=== PATIENT | female | born 2000 | race African-American/Black ===

== ENCOUNTER 2020-09-18 12:44 | Emergency (ER) | payer MEDICAID, SELFPAY ==
[2020-09-18 12:59] VITALS: BP 136/88; PULSE 91; RESP 22; TEMP 36.4; O2SAT 100; BMI 22.1
--- NOTE | 2020-09-18 13:49 | ED.PSYCH ---
HPI - Psych General Chief Complaint: Psychiatric Symptoms Stated Complaint: CRISIS Source: patient Mode of arrival: ambulatory Limitations: no limitations History of Present Illness HPI Narrative: Patient presents to the ED for crisis evaluation. Patient states she was having argument with her mother in in her anger and slammed the mirror upon her head. Patient states she did it out of anger. But patient denies trying to kill or hurt herself. Patient la any homicidal/suicidal thoughts. Patient denies any having any auditory/visual hallucinations. Patient states history of depression but has not been on medications since being a teenager. . Related Data Allergies Allergy/AdvReac Type Severity Reaction Status Date / Time shrimp [SHRIMP] Allergy Unknown HIVES Unverified 01/13/20 16:51 Review of Systems Review of Systems: Yes all other systems are reviewed and are negative Constitutional: Constitutional: Reports as per HPI and Reports no additional constitutional complaints Eyes: Eyes: Reports as per HPI and Reports no additional eye complaints ENT: Reports system reviewed and no additional complaints, except as documented and Reports as per HPI Cardiovascular: Cardiovascular: Reports as per HPI and Reports no additional cardiovascular complaints Respiratory: Respiratory: Reports as per HPI and Reports no additional respiratory complaints Gastrointestinal: Gastrointestinal: Reports as per HPI and Reports no additional gastrointestinal complaints Musculoskeletal: Musculoskeletal: Reports no additional musculoskeletal complaints and Reports as per HPI Neurologic: Reports system reviewed and no additional complaints, except as documented and Reports as per HPI Psychiatric: Psychiatric: Reports no additional psychiatric complaints and Reports as per HPI Comments: anger [facility] Past Medical History Medical History (Updated 09/18/20 @ 17:04 by KENDAL Andrews) No known health problems Social History Social History Advance Directives: No Advance Directives Information Provided: No Physical Exam Vital Signs: Vital Signs: Last Vital Signs Temp 97.5 F 09/18/20 12:59 Pulse 91 09/18/20 12:59 Resp 22 H 09/18/20 12:59 BP 136/88 09/18/20 12:59 Pulse Ox 100 09/18/20 12:59 Body Mass Index 22.1 Const: General: cooperative, healthy appearing, comfortable, no acute distress, well developed, alert, awake and Physically active Orientation/consciousness: patient oriented x3 HENMT: Other: Positive for abrasion own left temporal. Positive for suicide more frontal abrasions. Positive for small nare laceration. Head: Yes normal to inspection, Yes No palpable skull fracture present, Yes normocephalic and Yes abrasion Eyes: General: appearance normal, both eyes and all related structures Neck: Neck: Yes normal visual inspection, Yes full ROM, Yes no lymphadenopathy, Yes no meningeal signs, Yes trachea midline, Yes supple and No tender Chest: Chest palpation & inspection: normal inspection of the chest and normal palpation of entire chest wall Resp: Effort & Inspection: normal respiratory effort and able to speak in complete sentences Auscultation: clear to auscultation bilaterally Cardio: Jugular venous distension: no JVD Heart sounds: S1 normal heart sound present and S2 normal heart sound present GI: Inspection: Yes normal to inspection and No abdominal wall ecchymosis Palpation (GI): Soft to palpation, not firm, nontender, no guarding and not rigid : General: No CVA tenderness and Yes no CVA tenderness Back/Spine/Pelvis: Back: no CVA tenderness, No CVA tenderness and No back tenderness Skin: General skin exam: no rashes or lesions noted and elasticity normal Neuro: General: patient oriented x3, no meningeal signs and CN's II-XI intact bilaterally Cranial nerves: Yes CN's II-XII intact bilaterally Extrem: General: Yes normal to inspection and Yes full ROM Psych: Appearance: grossly normal, well kempt and not disheveled Course Course Course Narrative: Patient wound will be cleaned laceration repair on nares Reevaluation(s) Reevaluation #1: Nasal laceration clean with sterile saline and Betadine. Derbabpmd used to close wound. Two frontal abrasions and 2 scalp abrasion clean with sterile saline and Betadine. Contact care team to evaluate patient. Patient is not suicidal orhomicidal present Reevaluation #2: Patient seen by care team learning and development consultant who states patient does not need psych admission and patient could be discharged. Patient presently is not suicida or l homicidal. Patient have referrel to outpatient therapy by care team learning and development consultant. MDM - Psych Lab Data Result diagrams: 09/18/20 14:06 09/18/20 14:06 Labs: Lab Results 09/18/20 09/18/20 09/18/20 Range/Units 13:10 13:10 13:10 WBC (4.8-10.8) X10*3/uL RBC (4.20-5.50) X10*6/uL Hgb (12.0-16.0) g/dl Hct (37-47) % MCV (80-98) fL MCH (27.0-33.0) pg MCHC (31.0-35.0) g/dl RDW (11.0-16.0) % Plt Count (160-400) X10*3/uL MPV (9.4-12.3) fL Immature Gran % (Auto) (0.0-0.4) % Neut % (Auto) (45-73) % Lymph % (Auto) (20-40) % [place] % (Auto) (2-11) % Eos % (Auto) (0-4) % Baso % (Auto) (0-2) % Lymph # (Auto) (1.2-4.9) X10*3/uL [place] # (Auto) (0.1-1.2) X10*3/uL Eos # (Auto) (0.0-0.4) X10*3/uL Baso # (Auto) (0.0-0.2) X10*3/uL Abs Immat Gran (auto) (0.00-0.03) X10*3/uL Absolute Neuts (auto) (2.0-8.3) X10*3/uL Absolute Nucleated RBC (0.0-0.012) X10*3/uL Nucleated RBC % (auto) (0.0-0.2) /100WBC Sodium (135-145) mmol/L Potassium (3.3-5.1) mmol/L Chloride (96-108) mmol/L Carbon Dioxide (22-29) mmol/L Anion Gap (12-20) BUN (9-16) mg/dL Creatinine (0.5-1.4) mg/dL Estim Creat Clear Calc Estimated GFR Random Glucose (60-115) mg/dL Calcium (8.4-10.2) mg/dL Total Bilirubin (0.0-1.0) mg/dL Direct Bilirubin (0.0-0.5) mg/dL AST (5-31) U/L ALT (0-31) U/L Alkaline Phosphatase (39-117) U/L Total Protein (6.5-8.0) g/dL Albumin (3.5-5.0) g/dL Urine Color YELLOW Urine Appearance CLEAR Urine pH 6.0 (5.0-8.0) Ur Specific [place] >= 1.030 H (1.005-1.025) Urine Protein 1+ H (NEG-TRACE) MG/DL Urine Glucose (UA) NEG (NEG) MG/DL Urine Ketones NEG (NEG) MG/DL Urine Blood NEG (NEG) Urine Nitrite NEG (NEG) Ur Leukocyte Esterase NEG (NEG) Urine RBC 0 (0) /HPF Urine WBC 1-4 (0-4) /HPF Ur Squamous Epith Cells 3+ /LPF Urine Bacteria 2+ /LPF Urine Mucus 2+ /LPF Urine Test NEGATIVE (NEGATIVE) Urine Opiates Screen Not Detected (Not Detect) Ur Barbiturates Screen Not Detected (Not Detect) Ur Phencyclidine Scrn Not Detected (Not Detect) Ur Amphetamines Screen Not Detected (Not Detect) U Benzodiazepines Scrn Not Detected (Not Detect) Urine Cocaine Screen Not Detected (Not Detect) U Marijuana (THC) Screen POSITIVE H (Not Detect) Ethyl Alcohol mg/dL 09/18/20 09/18/20 09/18/20 Range/Units 14:06 14:06 14:06 WBC 13.3 H (4.8-10.8) X10*3/uL RBC 4.34 (4.20-5.50) X10*6/uL Hgb 12.9 (12.0-16.0) g/dl Hct 39.2 (37-47) % MCV 90.3 (80-98) fL MCH 29.7 (27.0-33.0) pg MCHC 32.9 (31.0-35.0) g/dl RDW 12.7 (11.0-16.0) % Plt Count 204 (160-400) X10*3/uL MPV 10.0 (9.4-12.3) fL Immature Gran % (Auto) 0.2 (0.0-0.4) % Neut % (Auto) 82.8 H (45-73) % Lymph % (Auto) 11.2 L (20-40) % [place] % (Auto) 5.4 (2-11) % Eos % (Auto) 0.1 (0-4) % Baso % (Auto) 0.3 (0-2) % Lymph # (Auto) 1.5 (1.2-4.9) X10*3/uL [place] # (Auto) 0.7 (0.1-1.2) X10*3/uL Eos # (Auto) 0.0 (0.0-0.4) X10*3/uL Baso # (Auto) 0.0 (0.0-0.2) X10*3/uL Abs Immat Gran (auto) 0.03 (0.00-0.03) X10*3/uL Absolute Neuts (auto) 11.0 H (2.0-8.3) X10*3/uL Absolute Nucleated RBC 0.000 (0.0-0.012) X10*3/uL Nucleated RBC % (auto) 0.0 (0.0-0.2) /100WBC Sodium 139 (135-145) mmol/L Potassium 4.8 (3.3-5.1) mmol/L Chloride 109 H (96-108) mmol/L Carbon Dioxide 20 L (22-29) mmol/L Anion Gap 15 (12-20) BUN 12 (9-16) mg/dL Creatinine 0.78 (0.5-1.4) mg/dL Estim Creat Clear Calc 94.4 Estimated GFR > 60 Random Glucose 98 (60-115) mg/dL Calcium 10.0 (8.4-10.2) mg/dL Total Bilirubin 1.4 H (0.0-1.0) mg/dL Direct Bilirubin 0.5 (0.0-0.5) mg/dL AST 15 (5-31) U/L ALT 13 (0-31) U/L Alkaline Phosphatase 79 (39-117) U/L Total Protein 8.7 H (6.5-8.0) g/dL Albumin 4.8 (3.5-5.0) g/dL Urine Color Urine Appearance Urine pH (5.0-8.0) Ur Specific [place] (1.005-1.025) Urine Protein (NEG-TRACE) MG/DL Urine Glucose (UA) (NEG) MG/DL Urine Ketones (NEG) MG/DL Urine Blood (NEG) Urine Nitrite (NEG) Ur Leukocyte Esterase (NEG) Urine RBC (0) /HPF Urine WBC (0-4) /HPF Ur Squamous Epith Cells /LPF Urine Bacteria /LPF Urine Mucus /LPF Urine Test (NEGATIVE) Urine Opiates Screen (Not Detect) Ur Barbiturates Screen (Not Detect) Ur Phencyclidine Scrn (Not Detect) Ur Amphetamines Screen (Not Detect) U Benzodiazepines Scrn (Not Detect) Urine Cocaine Screen (Not Detect) U Marijuana (THC) Screen (Not Detect) Ethyl Alcohol < 10 mg/dL Discharge Plan Discharge Clinical Impression: Depression Patient Disposition: Home, Self-Care Instructions: Laceration (ED), Depression (ED), Abrasion (ED) Additional Instructions: Return to the ED for any suicidal/homicidal ideation, auditory/visual hallucinations, any physical complaints, or any other concerning symptoms. Please follow-up with outpatient therapy you were referred to. Please follow-up with your PCP. Stand Alone Forms: Work/School Release Interventions: ED Discharge Assessment Last Done: 09/18/20 17:09 Discharge Date/Time: 09/18/20 17:10 Print Language: Nauruan
[2020-09-18 13:58] LABS: Glucose Urine UA NEG (NEG); Leukocyte Esterase Urine NEG (NEG); Nitrite Urine NEG (NEG); Specific Gravity - Urine >= 1.030 (1.005-1.025); Urine Blood NEG (NEG); Urine Ketones NEG (NEG); Urine Protein 1+ MG/DL (NEG-TRACE)
[2020-09-18 14:04] LABS: Appearance Urine CLEAR; Color Urine YELLOW
[2020-09-18] MEDS: Diphth,Pertus(ACell),Tet Adult 0.5 ML SYRINGE IM (14:09)
[2020-09-18 14:11] LABS: MANUAL DIFF FLAG NO
[2020-09-18 14:12] LABS: Bacteria Urine 2+ /LPF; Mucus Urine 2+ /LPF; RBC Urine 0 /HPF (0); Squamous Epithelial Cell Urine 3+ /LPF; UPreg QC Valid YES; Urine Pregnancy NEGATIVE (NEGATIVE)
[2020-09-18 14:17] LABS: Basophils Percent Auto 0.3 % (0-2); Eosinophils Percent Auto 0.1 % (0-4); Hematocrit 39.2 % (37-47); Hemoglobin 12.9 g/dl (12.0-16.0); Imm Gran Abs Auto 0.03 X10*3/uL (0.00-0.03); Imm Gran Pct Auto 0.2 % (0.0-0.4); Lymphocytes Absolute Auto 1.5 X10*3/uL (1.2-4.9); Lymphocytes Percent Auto 11.2 % (20-40); Mean Corpuscular HGB Conc 32.9 g/dl (31.0-35.0); Mean Corpuscular Hemoglobin 29.7 pg (27.0-33.0); Mean Corpuscular Volume 90.3 fL (80-98); Monocytes Absolute Auto 0.7 X10*3/uL (0.1-1.2); Monocytes Percent Auto 5.4 % (2-11); Neutrophils Percent Auto 82.8 % (45-73); Platelet Count 204 X10*3/uL (160-400); Red Blood Count 4.34 X10*6/uL (4.20-5.50); Red Cell Distribution Width 12.7 % (11.0-16.0); White Blood Count 13.3 X10*3/uL (4.8-10.8)
[2020-09-18 14:35] LABS: Amphetamine Screen Urine Not Detected (Not Detect); Barbiturates, Urine Not Detected (Not Detect); Benzodiazepines Screen Urine Not Detected (Not Detect); Cannabinoid Screen Urine POSITIVE (Not Detect); Cocaine Screen Urine Not Detected (Not Detect); Opiate Screen Urine Not Detected (Not Detect); Phencyclidine Screen Urine Not Detected (Not Detect)
[2020-09-18 14:44] LABS: Ethanol < 10 mg/dL
[2020-09-18 14:51] LABS: Alanine Aminotransferase 13 U/L (0-31); Albumin Level 4.8 g/dL (3.5-5.0); Alkaline Phosphatase 79 U/L (39-117); Anion Gap 15 (12-20); Aspartate Amino Transferase 15 U/L (5-31); Bilirubin Direct 0.5 mg/dL (0.0-0.5); Bilirubin Total 1.4 mg/dL (0.0-1.0); Blood Urea Nitrogen 12 mg/dL (9-16); Carbon Dioxide 20 mmol/L (22-29); Chloride 109 mmol/L (96-108); Creatinine Clr Calc Pharmacy 94.4; Estimated Glomerular Filt Rate > 60; Glucose Random 98 mg/dL (60-115); Potassium 4.8 mmol/L (3.3-5.1); Sodium 139 mmol/L (135-145); Total Protein 8.7 g/dL (6.5-8.0)
--- NOTE | 2020-09-18 16:29 | MHC.CARE ---
Pt self presented to [facility] after an argument with her mother which resulted in her self harming by banging her head onto her room mirror. Pt reports that this was a reaction of bottled up anger and has daily conflict with her mother. Pt expresses that her mother became upset with her due to leaving dishes in the sink that she did not wash and started nagging . Pt expresses that her mother wants things done her way and her way only . She shares that they have always had a nirmal relationship . Pt is future oriented she works and is looking forward to advance. Pt admits that she has low frustration tolerance, but would only take this out on herself because I would never hit my mom, no matter how much she upsets me . Pt reports a hx of being in therapy that she feels had not been helpful for her in the past. She expresses when she was in high school, she was seen by crisis but never admitted. She states that she will give therapy another try. CARE team will assist with a therapy referral as it was encouraged so pt can process her emotions and learn healthy coping skills. Pt will be discharged and provider Steve Maguire was in agreement with disposition.
--- NOTE | 2020-09-18 16:41 | MHC.CARE ---
ADDITIONAL: Pt denied current SI and reports no hx of attempts. Pt reports 5 years ago something similar occurred, and this was also an reaction to anger. Pt expresses that this incident was not any intent to kill herself but a result of anger. Pt does not present withdrawn or depressed. She appears future oriented and feels ready to be discharged so she can go to work.
== END 2020-09-18 17:10 | disposition home or self-care (01) ==
PROVIDERS: Physician Assistant; Emergency Provider Emergency Medicine; PCP Internal Medicine
DX: F32.9 Major depressive disorder, single episode, unspecified (principal); S01.21XA Laceration without foreign body of nose, initial encounter; S00.81XA Abrasion of other part of head, initial encounter; S00.01XA Abrasion of scalp, initial encounter; X78.8XXA Intentional self-harm by other sharp object, initial encounter; F12.90 Cannabis use, unspecified, uncomplicated; Y93.89 Activity, other specified; Y92.019 Unspecified place in single-family (private) house as the place of occurrence of the external cause; Y99.9 Unspecified external cause status
CPT/HCPCS: 12011; 36415; 80053; 80076; 80307; 80320; 81001; 81003; 81025; 82248; 85025; 90471; 90715; 99284

== ENCOUNTER 2021-05-21 21:59 | Emergency (ER) | payer OTHER, MEDICAID, SELFPAY ==
--- NOTE | ~2021-05-21 | XR_ITS ---
EXAMINATION: LEFT HAND CLINICAL INFORMATION: Thumb pain COMPARISON: None TECHNIQUE: 3 views left hand FINDINGS: No bone, joint or soft tissue abnormality is seen XR/XR hand wrist LT IMPRESSION: Negative exam
[2021-05-21 22:59] VITALS: BP 109/62; PULSE 84; RESP 16; TEMP 36.8; O2SAT 100; BMI 21.8
--- NOTE | 2021-05-22 00:18 | ED.EXTPRO ---
HPI - Extremity Problem General Chief complaint: Extremity Injury, Lower Stated complaint: work inj @ long-term Time Seen by Provider: 05/21/21 22:48 Source: patient Mode of arrival: ambulatory Limitations: no limitations History of Present Illness HPI Narrative: patient presents to the ED for left thumb pain. 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 patient hear a pop in her thumb. patient states pain ever since. Patient states no other trauma Related Data Previous Rx's Medication Instructions Recorded naproxen 500 mg tablet 500 mg PO BID PRN 10 Days #20 tab 05/22/21 Allergies Allergy/AdvReac Type Severity Reaction Status Date / Time shrimp [SHRIMP] Allergy Unknown HIVES Verified 05/22/21 00:31 Review of Systems Review of Systems: Thumb pain Yes all other systems are reviewed and are negative [facility] Past Medical History Medical History (Updated 05/22/21 @ 00:52 by KENDAL Andrews) No known health problems Social History Social History Advance Directives: No Advance Directives Information Provided: No Patient : No Physical Exam Vital Signs: Vital Signs: Last Vital Signs Temp 98.2 F 05/21/21 22:59 Pulse 84 05/21/21 22:59 Resp 16 05/21/21 22:59 BP 109/62 05/21/21 22:59 Pulse Ox 100 05/21/21 22:59 BMI result Body Mass Index 21.8 Const: General: cooperative, healthy appearing, comfortable, no acute distress, well developed and alert Orientation/consciousness: oriented to person, oriented to place, oriented to time and patient oriented x3 HENMT: Head: Yes normal to inspection, Yes No palpable skull fracture present, Yes normocephalic, Yes atraumatic and No abrasion Eyes: General: appearance normal, both eyes and all related structures Neck: Neck: Yes normal visual inspection, Yes full ROM, Yes no lymphadenopathy, Yes no meningeal signs, Yes trachea midline, Yes supple, No anterior neck swelling and No tender Chest: Chest palpation & inspection: normal inspection of the chest and normal palpation of entire chest wall Resp: Effort & Inspection: normal respiratory effort and able to speak in complete sentences Auscultation: clear to auscultation bilaterally Cardio: Jugular venous distension: no JVD Heart sounds: S1 normal heart sound present and S2 normal heart sound present GI: Inspection: Yes normal to inspection and No abdominal wall ecchymosis Palpation (GI): Soft to palpation, not firm, nontender, no guarding and not rigid : General: No CVA tenderness and Yes no CVA tenderness Back/Spine/Pelvis: Back: no CVA tenderness, No CVA tenderness and No back tenderness Skin: General skin exam: no rashes or lesions noted and elasticity normal Neuro: General: oriented to person, oriented to place, oriented to time, patient oriented x3, gait normal, tone normal, no meningeal signs and CN's II-XI intact bilaterally Extrem: General: Yes normal to inspection and Yes full ROM Hand/finger images: 1. Positive for tenderness on palpation. Capillary refill is intact. Neuro exam is intact. Motor exam of thumb limited due to significant pain. Rest of hand exam normal. Motor/neuro/r vacular exam of hand is normal Psych: Appearance: grossly normal, well kempt and not disheveled Course Course Course Narrative: Patient sent for left hand x-ray Reevaluation(s) Reevaluation #1: Hand x-ray came back normal negative for any fracture or dislocation. Patient informed she may have a tendon/ligament injury due to her hearing popping left thumb. Patient placed in vertical thumb spica splint. Patient informed she will need MRI outpatient to rule out any ligament/tendon injury. Time: 00:50 MDM - Extremity (Nontraumatic) MDM Narrative Medical decision making narrative: Left thumb sprain Discharge Plan Discharge Clinical Impression: Left thumb sprain Patient Disposition: Home, Self-Care Instructions: Sprain (ED), Finger Sprain (ED) Additional Instructions: You're xray came back normal. You will need follow up outpatient for MRI to rule out ligament or tendon tear. PLease and call follow up with [facility]. Return to the ED for any swelling, redness, bluish black discoloration, hotness, coldness, pus discharge, fever, chills, or any other concerning symptoms. Prescriptions: New naproxen 500 mg tablet 500 mg PO BID PRN (Reason: pain) 10 Days Qty: 20 RF: 0 Referrals: [facility] [Provider Group] - 2 days (Thumb sprain due to work injury. May need MRI to rule out tendon/ligament tear) Valencia Trejo MD [Physician] - 2 days (Thumb sprain. Possible ligament/tendon injury) Stand Alone Forms: Work/School Release Print Language: Citizen [place]
[2021-05-22] MEDS: Ibuprofen 800 MG TABLET PO (00:56)
== END 2021-05-22 01:05 | disposition home or self-care (01) ==
PROVIDERS: Emergency Provider Student in an Organized Health Care Education/Training Program; PCP Internal Medicine
DX: S63.602A Unspecified sprain of left thumb, initial encounter (principal); Y04.2XXA Assault by strike against or bumped into by another person, initial encounter; Y93.F9 Activity, other caregiving; Y92.049 Unspecified place in boarding-house as the place of occurrence of the external cause; Y99.0 Civilian activity done for income or pay
CPT/HCPCS: 29130; 73110; 73130; 99283

== ENCOUNTER → 2021-05-29 10:38 | Outpatient (BNVA) | payer OTHER, MEDICAID, SELFPAY | PROVIDERS: PCP Internal Medicine; Visit Provider Physician Assistant ==

== ENCOUNTER 2021-06-05 11:35 | Emergency (ER) | payer MEDICAID, SELFPAY ==
--- NOTE | 2021-06-05 | ECG_ITS ---
Test Reason : CHEST PAIN Blood Pressure : / mmHG Vent. Rate : 073 BPM Atrial Rate : 073 BPM P-R Int : 146 ms QRS Dur : 076 ms QT Int : 368 ms P-R-T Axes : 010 078 046 degrees QTc Int : 405 ms Normal sinus rhythm Otherwise normal ECG When compared with ECG of 13-JUL-2016 17:24, No significant changes seen Referred By: Generic ED Physician Electronically Signed By:Tony Valdovinos
--- NOTE | ~2021-06-05 | XR_ITS ---
EXAMINATION: XR CHEST CLINICAL INFORMATION: Chest pain and shortness of breath for one week COMPARISON: 06/08/2016 TECHNIQUE: Frontal view of the chest was obtained. FINDINGS: The lungs are well expanded. There is no focal consolidation, edema, or effusion. No pneumothorax. The cardiomediastinal silhouette is within normal limits. No acute osseous abnormality. XR/XR chest 1V IMPRESSION: Clear lungs.
[2021-06-05 12:03] VITALS: BP 128/80; PULSE 77; RESP 18; TEMP 36.5; O2SAT 100; BMI 22.3
[2021-06-05 12:39] LABS: COVID-19 Test Negative (Negative)
--- NOTE | 2021-06-05 14:06 | ED.URI ---
HPI - URI/Sore Throat General Chief Complaint: Upper Respiratory Symptoms Stated Complaint: Ear pain/cough Time Seen by Provider: 06/05/21 14:02 Source: patient Mode of arrival: ambulatory Limitations: no limitations History of Present Illness HPI Narrative: 21-year-old female here with reports of left ear pain, cough, productive cough with green sputum, chest discomfort with coughing, chills for the last week. Patient denies any sore throat, runny nose, shortness of breath, leg swelling or pain. Related Data Previous Rx's Medication Instructions Recorded naproxen 500 mg tablet 500 mg PO BID PRN 10 Days #20 tab 05/22/21 albuterol sulfate 90 mcg/actuation 2 inh INHALATION Q4H PRN #1 ea 06/05/21 breath activated powder inhaler azithromycin 250 mg tablet See Rx Instructions .ROUTE 06/05/21 .COMPLEX #6 tab benzonatate 200 mg capsule 200 mg PO TID PRN #20 cap 06/05/21 prednisone 20 mg tablet 40 mg PO DAILY #10 tab 06/05/21 Allergies Allergy/AdvReac Type Severity Reaction Status Date / Time shrimp [SHRIMP] Allergy Unknown HIVES Verified 05/29/21 10:41 naproxen Allergy Rash Verified 06/05/21 12:05 Review of Systems Review of Systems: Yes all other systems are reviewed and are negative Constitutional: Constitutional: Reports no additional constitutional complaints, Denies body ache(s), Reports chills, Denies fever(s), Denies headache(s) and Denies weakness Eyes: Eyes: Reports no additional eye complaints and Denies change in vision ENT: Reports system reviewed and no additional complaints, except as documented, Denies dizziness, Reports otalgia, Denies headache(s), Denies nasal congestion, Denies nasal discharge and Denies neck pain Cardiovascular: Cardiovascular: Reports no additional cardiovascular complaints, Reports chest pain (with coughing ), Denies leg edema and Denies dyspnea Respiratory: Respiratory: Reports no additional respiratory complaints, Reports cough and Denies dyspnea Gastrointestinal: Gastrointestinal: Reports no additional gastrointestinal complaints, Denies abdominal pain, Denies diarrhea, Denies nausea and Denies vomiting Genitourinary: Genitourinary: Reports no additional female genitourinary complaints and Denies urinary incontinence Musculoskeletal: Musculoskeletal: Reports no additional musculoskeletal complaints, Denies back pain, Denies arthralgias, Denies joint swelling, Denies neck pain, Denies numbness and Denies tingling Integumentary/Breasts: Skin/Breast: Reports system reviewed and no additional complaints, except as docu and Denies rash Neurologic: Reports system reviewed and no additional complaints, except as documented, Denies Abnormal speech present, Denies dizziness, Denies headache(s), Denies numbness, Denies tingling and Denies weakness PMFSH Past Medical History Attestation statement: The following information was validated with the patient. 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 Physical Exam Vital Signs: Vital Signs: Last Vital Signs Temp 97.7 F 06/05/21 12:03 Pulse 77 06/05/21 12:03 Resp 18 06/05/21 12:03 BP 128/80 06/05/21 12:03 Pulse Ox 100 06/05/21 12:03 BMI result Body Mass Index 22.3 Const: General: cooperative, healthy appearing, comfortable and no acute distress Orientation/consciousness: patient oriented x3 Limitations: no limitations HENMT: Head: Yes normal to inspection Ears: hearing grossly normal bilaterally, TM normal on the right, mastoids normal, no periauricular adenopathy and TM abnormal ( Left TM with erythema, bulging) General nose exam: Normal external nose present Face and sinus: Yes normal facial exam Mouth: Normal oral and palatal mucosa present Throat: Yes posterior oropharynx normal, Yes tonsils normal and Yes uvula midline Eyes: General: appearance normal, both eyes and all related structures Pupils: Equal, round and reactive pupils present Neck: Neck: Yes normal visual inspection Chest: Chest palpation & inspection: normal inspection of the chest Resp: Other: mild expiratory wheezing through Effort & Inspection: normal respiratory effort Cardio: Rate: regular rate Rhythm: regular rhythm Peripheral pulses: Peripheral pulses 2+ throughout GI: Inspection: Yes normal to inspection Palpation (GI): Soft to palpation and nontender Auscultation: normal bowel sounds Back/Spine/Pelvis: Thoracic/Lumbar Spine: thoracic and lumbar spine normal to inspection Skin: General skin exam: no rashes or lesions noted Neuro: General: patient oriented x3, no focal motor deficits and normal sensation to monofilament Cranial nerves: Yes Equal, round and reactive pupils present Cognition (Neuro): normal cognition Speech: No Abnormal speech present Gait exam (Neuro): Normal gait present Motor exam (neuro): 5/5 motor strength present throughout Extrem: General: Yes normal to inspection, Yes no pedal edema and Yes no calf tenderness Course Course Course Narrative: 21-year-old female here with reports of chills, productive cough with green sputum, left ear pain, chest discomfort with coughing for 1 week. vitals are stable exam is consistent with left otitis media patient has mild expiratory wheezing on exam. COVID screen is negative. Chest x-ray shows no acute finding Will treat for assumed bronchitis and otitis media with oral antibiotics. Reviewed worrisome signs and symptoms and when to return to the emergency department. Comfortable discharge home. MDM - URI/Sore Throat Medical Records Attestation: I reviewed the patient's medical records. Lab Data Attestation: I reviewed the patient's lab results. Labs: Lab Results 06/05/21 Range/Units 12:17 COVID-19 ([facility]) Negative (Negative) COVID-19 Clin Com See Note Imaging Data Chest x-ray: Attestation: I personally reviewed and interpreted this imaging study as follows: Radiologist's impression: [address] [address] XRay Report Signed Patient: Rosita Cook MR#: [id number] : 2000 Acct:[id number] Age/Sex: 21 / F ADM Date: 06/05/21 Loc: .ED Attending Dr: Ordering Physician: Generic ED Physician Date of Service: 06/05/21 Procedure(s): XR chest 1V Accession Number(s): [id number] cc: Generic ED Physician~ EXAMINATION: XR CHEST CLINICAL INFORMATION: Chest pain and shortness of breath for one week COMPARISON: 06/08/2016 TECHNIQUE: Frontal view of the chest was obtained. FINDINGS: The lungs are well expanded. There is no focal consolidation, edema, or effusion. No pneumothorax. The cardiomediastinal silhouette is within normal limits. No acute osseous abnormality. XR/XR chest 1V IMPRESSION: Clear lungs. ? ECG Data Attestation: I personally reviewed and interpreted this ECG as follows: ECG interpretation date: 06/05/21 ECG interpretation time: 14:09 Interpretation: Normal sinus rhythm with a rate of 73, normal NV, normal QRS, normal QT Discharge Plan Discharge Clinical Impression: Bronchitis, Otitis media Patient Disposition: Home, Self-Care Instructions: Ear Infection (ED), Acute Bronchitis (ED) Additional Instructions: covid test negative Prescriptions: New albuterol sulfate 90 mcg/actuation aerosol powdr breath activated 2 inh inhalation Q4H PRN (Reason: shortness of breath or wheezing) Qty: 1 0RF azithromycin 250 mg tablet See Rx Instructions .ROUTE .COMPLEX Qty: 6 0RF Rx Instructions: For 250 mg dose pack: take 500 mg today (day 1), then 250 mg for 4 days (days 2-5) prednisone 20 mg tablet 40 mg PO DAILY Qty: 10 0RF benzonatate 200 mg capsule 200 mg PO TID PRN (Reason: cough) Qty: 20 0RF No Action naproxen 500 mg tablet 500 mg PO BID PRN (Reason: pain) 10 Days Qty: 20 0RF Referrals: Sandra Weber MD [Primary Care Provider] - 2 days (as needed) Stand Alone Forms: Work/School Release Interventions: ED Discharge Assessment Last Done: 06/05/21 14:21 Discharge Date/Time: 06/05/21 14:21
== END 2021-06-05 14:21 | disposition home or self-care (01) ==
PROVIDERS: Emergency Provider Emergency Medicine; PCP Internal Medicine
DX: J40 Bronchitis, not specified as acute or chronic (principal); H66.92 Otitis media, unspecified, left ear; R07.89 Other chest pain; R06.02 Shortness of breath; Z20.822 Contact with and (suspected) exposure to COVID-19; Z79.899 Other long term (current) drug therapy
CPT/HCPCS: 71045; 87635; 93005; 99283; 99284

== ENCOUNTER 2021-07-09 13:17 | Emergency (ER) | payer MEDICAID, SELFPAY ==
[2021-07-09 14:11] VITALS: BP 119/64; PULSE 97; RESP 18; TEMP 37.1; O2SAT 98; BMI 21.2
[2021-07-09 15:29] LABS: Appearance Urine HAZY; Color Urine YELLOW; Glucose Urine UA NEG (NEG); Leukocyte Esterase Urine NEG (NEG); Nitrite Urine NEG (NEG); PH 7.5 (5.0-8.0); Specific Gravity - Urine 1.015 (1.005-1.025); Urine Blood NEG (NEG); Urine Ketones 15 MG/DL (NEG); Urine Protein TRACE MG/DL (NEG-TRACE)
[2021-07-09 15:52] LABS: Bacteria Urine 1+ /LPF; RBC Urine 0 /HPF (0); Squamous Epithelial Cell Urine 2+ /LPF; WBC Urine 0 /HPF (0-4)
== END 2021-07-09 21:18 | disposition left against medical advice (07) ==
PROVIDERS: Emergency Provider Emergency Medicine; PCP Internal Medicine
DX: R10.9 Unspecified abdominal pain (principal); R11.2 Nausea with vomiting, unspecified
CPT/HCPCS: 81001; 99282; 99283

== ENCOUNTER 2021-10-09 09:49 | Emergency (ER) | payer MEDICAID, SELFPAY ==
--- NOTE | ~2021-10-09 | XR_ITS ---
EXAMINATION: XR CHEST CLINICAL INFORMATION: Chest pain/SOB COMPARISON: None TECHNIQUE: 2 views of the chest were obtained. FINDINGS: No significant abnormality is noted involving the heart, lungs, mediastinum, bony thorax or soft tissues. XR/XR chest 2V IMPRESSION: Unremarkable chest examination.
--- NOTE | ~2021-10-09 | US_ITS ---
EXAMINATION: US ABDOMEN COMPLETE CLINICAL INFORMATION: Upper abdominal pain. COMPARISON: None TECHNIQUE: Real-time imaging of the abdominal viscera. FINDINGS: PANCREAS: Normal. ABDOMINAL AORTA: The proximal, mid, and distal segments are normal in caliber. INFERIOR VENA CAVA: Visualized portions are normal. LIVER: Normal. The liver is normal in size. The liver contour is normal. Parenchymal echogenicity is normal. No focal hepatic lesion. There is no intrahepatic biliary duct dilatation seen. GALLBLADDER: Normal. The gallbladder is physiologically distended without evidence of stones, sludge, polyps, wall thickening or pericholecystic fluid. COMMON BILE DUCT: Normal in caliber measuring 0.3 cm in diameter. RIGHT KIDNEY: Normal. No hydronephrosis. No renal calculi or focal parenchymal lesions. The kidney measures 10.0 cm in maximum dimension. LEFT KIDNEY: Normal. No hydronephrosis. No renal calculi or focal parenchymal lesions. The kidney measures 9.8 cm in maximum dimension. SPLEEN: Normal. The spleen measures 8.3 cm in maximum dimension. FREE FLUID: None. US/US abdomen complete IMPRESSION: Unremarkable abdominal ultrasound.
[2021-10-09 10:13] VITALS: BP 112/48; PULSE 72; RESP 18; TEMP 36.9; O2SAT 100; BMI 19.7
--- NOTE | 2021-10-09 10:17 | ECG_ITS ---
Test Reason : CHEST PAIN Blood Pressure : / mmHG Vent. Rate : 072 BPM Atrial Rate : 072 BPM P-R Int : 144 ms QRS Dur : 082 ms QT Int : 366 ms P-R-T Axes : 007 085 051 degrees QTc Int : 400 ms Normal sinus rhythm with sinus arrhythmia Normal ECG When compared with ECG of 05-JUN-2021 12:12, No significant change was found Referred By: Generic ED Physician Electronically Signed By:Tony Valdovinos
[2021-10-09 10:56] LABS: MANUAL DIFF FLAG NO
[2021-10-09 10:58] LABS: Basophils Percent Auto 0.5 % (0-2); Eosinophils Percent Auto 0.5 % (0-4); Hematocrit 35.5 % (37.0-47.0); Hemoglobin 11.5 g/dl (12.0-16.0); Lymphocytes Percent Auto 35.4 % (20-40); Mean Corpuscular HGB Conc 32.4 g/dl (31.0-35.0); Mean Corpuscular Hemoglobin 29.4 pg (27.0-33.0); Mean Corpuscular Volume 90.8 fL (80.0-98.0); Mean Platelet Volume 9.4 fL (9.4-12.3); Monocytes Absolute Auto 0.4 X10*3/uL (0.1-1.2); Monocytes Percent Auto 7.4 % (2-11); Neutrophils Absolute Auto 3.1 x10*3/uL (2.0-8.3); Neutrophils Percent Auto 56.2 % (45-73); Platelet Count 189 X10*3/uL (160-400); Red Blood Count 3.91 X10*6/uL (4.20-5.50); Red Cell Distribution Width 13.1 % (11.0-16.0); White Blood Count 5.5 X10*3/uL (4.8-10.8)
[2021-10-09 11:16] LABS: Anion Gap 12 (12-20); Blood Urea Nitrogen 11 mg/dL (9-16); Calcium 8.8 mg/dL (8.4-10.2); Carbon Dioxide 22 mmol/L (22-29); Chloride 109 mmol/L (96-108); Creatinine Clr Calc Pharmacy 99.5; Estimated Glomerular Filt Rate > 60; Glucose Random 89 mg/dL (60-115); Potassium 4.5 mmol/L (3.3-5.1); Sodium 138 mmol/L (135-145)
[2021-10-09 11:21] LABS: Troponin-I High Sensitivity < 3.5 ng/L (<3.5-17.0)
[2021-10-09] MEDS: hydrOXYzine HCL 25 MG TABLET PO (11:25)
[2021-10-09 12:27] LABS: HCG Quantitative < 2 mIU/mL
[2021-10-09 12:36] LABS: Alanine Aminotransferase 13 U/L (0-31); Albumin Level 4.2 g/dL (3.5-5.0); Alkaline Phosphatase 61 U/L (39-117); Aspartate Amino Transferase 14 U/L (5-31); Bilirubin Direct 0.6 mg/dL (0.0-0.5); Bilirubin Total 1.6 mg/dL (0.0-1.0); Lipase 21 U/L (8-78); Total Protein 7.4 g/dL (6.5-8.0)
--- NOTE | 2021-10-09 13:26 | ED_ITS ---
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 She also reports burning in her chest and feels like her heart is racing and short of breath when she feels this way. She reports that she was at work when this started. She reports she is always at stressful situations at work. She denies any fevers, chills, dizziness, headaches, neck pain / stiffness, dyspnea on exertion, orthopnea, paresthesias, nausea/ vomiting, back pain, flank pain, dysuria, hematuria, abnormal vaginal discharge, lower extremity edema or calf tenderness, recent travel or immobilization, sick contacts, recent surgery, history of cancer, history of hypercoagulation disorder, any estrogen usage, history of PVD disease, history of hypercoagulation disorder that she is aware of, recent surgery or , presence of IVC filter, morbid obesity, history of DVT or PE or any other symptoms complaints or concerns at this time. MD complaint: chest pain Onset (ago): day(s) (4) Timing of current episode: constant and still present Prior episodes: No Onset: other (while at work under stressful events ) Pain location: left chest Pain radiation: left arm Severity: mild Quality: aching Relieving factors: nothing Exacerbating factors: nothing Associated symptoms: dyspnea Treatment prior to arrival: none Risk Factors Coronary artery disease risk factors: none Thoracic aortic dissection risk factors: none Related Data On Oral Contraceptives: No Previous Rx's Medication Instructions Recorded naproxen 500 mg tablet 500 mg PO BID PRN pain 10 days #20 05/22/21 tabs albuterol sulfate 90 mcg/actuation 2 inh inhalation Q4H PRN shortness 06/05/21 breath activated powder inhaler of breath or wheezing #1 ea azithromycin 250 mg tablet See Rx Instructions PO .COMPLEX #6 06/05/21 tabs benzonatate 200 mg capsule 200 mg PO TID PRN cough #20 caps 06/05/21 prednisone 20 mg tablet 40 mg PO DAILY #10 tabs 06/05/21 famotidine 20 mg tablet (Pepcid) 20 mg PO BID GERD #60 tabs 10/09/21 hydroxyzine HCl 50 mg tablet 50 mg PO BID PRN anxiety #14 tabs 10/09/21 Allergies Allergy/AdvReac Type Severity Reaction Status Date / Time shrimp [SHRIMP] Allergy Unknown HIVES Verified 05/29/21 10:41 naproxen Allergy Rash Verified 06/05/21 12:05 Review of Systems Review of Systems: Constitutional : No Weight loss, No Fever, No Chills, No Night Sweats, No Fatigue, No Malaise ENT/Mouth : No Hearing loss, No Ear Pain, No Nasal Congestion, No Sinus Pain, No Hoarseness, No sore throat, No Rhinorrhea, No Swallowing Difficulty Eyes: No Eye Pain, No Swelling, No Redness, No Foreign Body, No Discharge, No Vision Changes Cardiovascular : + Chest Pain, + SOB, No Dyspnea on Exertion, No Orthopnea, No Edema, + Palpitations Respiratory : No Cough, No Sputum, No Wheezing, No Smoke Exposure, No Dyspnea Gastrointestinal : No Nausea, No Vomiting, No Diarrhea, No Constipation, No abdominal Pain, No Hematochezia, No Melena Genitourinary : no irregular bleeding, No Dysuria, No Urinary Frequency, No Hematuria, No Urinary Incontinence, No Urgency, No Flank Pain, No Urinary Flow Changes, No Hesitancy Musculoskeletal : No joint pain, No Myalgias, No Joint Swelling Skin : No Skin Lesions, No rash Neuro : No Weakness, No Numbness, No Paresthesias, No Loss of Consciousness, No Dizziness, No Headache Psych : + Anxiety/Panic, No Depression, No SI/HI/AH/VH, No Social Issues, Heme/Lymph: No Bruising, No Bleeding,No Lymphadenopathy Endocrine : No Polyuria, No Polydipsia, No Temperature Intolerance Yes all other systems are reviewed and are negative [facility] Past Medical History Attestation statement: The following information was validated with the patient. 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 Blood pressure 112/48. Heart rate normal. Respiration rate normal. Temperature normal. Oxygen saturation normal. Appearance: Alert. Oriented X3. No acute distress. Head: Normal external exam. Normocephalic. Atraumatic. Eyes: PERRLA. EOMI. Conjunctiva and sclera normal. Eyelids normal. ENT: Pharynx normal. Uvula midline. Moist mucous membranes. No lesions/ulcerations or masses noted on the tongue. Normal voice. No trismus noted. No drooling noted. No muffled voice noted. Neck: Normal inspection. Neck supple. FROM. No adenopathy. Thyroid Normal. No tracheal deviation noted. No crepitus is noted. No meningeal signs. No neck mass noted. No signs of trauma noted. CVS: Normal heart rate and rhythm. Heart sound normal. Pulses normal throughout. No murmurs/rales/gallops. Respiratory: No respiratory distress. Painless inspiration. Breath sounds normal. No wheezes/rales/rhonchi noted. Chest nontender. No crepitus is noted. No signs of trauma noted. No accessory muscle usage noted or decreased air movement noted. No signs of trauma. Abdomen: Soft and Mild tenderness palpation to upper abdomen/ epigastric area. Bowel sounds normal in all 4 quadrants. No distention noted. No organomegaly noted. No visible injury noted. Back: Full range of motion noted. Skin: Skin warm and dry. Normal skin color. Normal skin turgor. No rashes/lesions/lacerations noted. Extremities: No lower extremity edema. No calf tenderness is noted. Extremities exhibit normal range of motion and nontender. Neuro: Oriented X 3. No motor deficit. No sensory deficit. Reflexes normal. Normal steady gait. No focal neuro deficits noted. CN's II-XII intact bilaterally? Vascular: + radial pulses/+ 2 distal pedal pulses/+2 dorsalis pedis b/l. Normal cap refill. No cyanosis noted to upper extremity nails and lower extremity toes nails. 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 She also repor ts burning in her chest and feels like her heart is racing and short of breath when she feels this way. She reports that she was at work when this started. She reports she is always at stressful situations at work. Patient most likely anxiety. Less concern for PE as patient is PERC negative. Less concern for ACS that she does not have any other medical history or risk factors. Less concern for pneumonia as she denies any fevers or cough. Plan: Labs, EKG, chest x-ray, abdominal ultrasound. Provide Atarax for possible anxiety and re-evaluate. Reevaluation(s) Reevaluation #1: - Labs reviewed patient mild anemia. Chloride 109. Total bilirubin 1.6. Direct bilirubin 0.6. Otherwise all other labs are within normal limits. Serum quant negative for . Chest x-ray within normal limits. Ultrasound of abdomen within normal limits no acute processes noted. EKG normal sinus rhythm no acute ischemic change noted. Patient most likely anxiety/ GERD or both. She reports that the atarax Will DC home with anxiety medication and Pepcid and instructions return if any new or worsening symptoms follow up with primary care provider. Patient understands agrees with this plan. Time: 13:45 [facility] - Chest Pain Medical Records Data Attestation: I reviewed the patient's medical records. Lab Data Attestation: I reviewed the patient's lab results. Result diagrams: 10/09/21 10:52 10/09/21 10:52 Labs: Lab Results 10/09/21 10/09/21 10/09/21 Range/Units 10:52 10:52 10:52 WBC 5.5 (4.8-10.8) X10*3/uL RBC 3.91 L (4.20-5.50) X10*6/uL Hgb 11.5 L (12.0-16.0) g/dl Hct 35.5 L (37.0-47.0) % MCV 90.8 (80.0-98.0) fL MCH 29.4 (27.0-33.0) pg MCHC 32.4 (31.0-35.0) g/dl RDW 13.1 (11.0-16.0) % Plt Count 189 (160-400) X10*3/uL MPV 9.4 (9.4-12.3) fL Immature Gran % (Auto) 0.0 (0.0-0.4) % Neut % (Auto) 56.2 (45-73) % Lymph % (Auto) 35.4 (20-40) % Jones % (Auto) 7.4 (2-11) % Eos % (Auto) 0.5 (0-4) % Baso % (Auto) 0.5 (0-2) % Lymph # (Auto) 2.0 (1.2-4.9) X10*3/uL Jones # (Auto) 0.4 (0.1-1.2) X10*3/uL Eos # (Auto) 0.0 (0.0-0.4) X10*3/uL Baso # (Auto) 0.0 (0.0-0.2) X10*3/uL Abs Immat Gran (auto) 0.00 (0.00-0.03) X10*3/uL Absolute Neuts (auto) 3.1 (2.0-8.3) x10*3/uL Absolute Nucleated RBC 0.000 (0.0-0.012) X10*3/uL Nucleated RBC % (auto) 0.0 (0.0-0.2) /100WBC Sodium 138 (135-145) mmol/L Potassium 4.5 (3.3-5.1) mmol/L Chloride 109 H (96-108) mmol/L Carbon Dioxide 22 (22-29) mmol/L Anion Gap 12 (12-20) BUN 11 (9-16) mg/dL Creatinine 0.73 (0.5-1.4) mg/dL Estim Creat Clear Calc 99.5 Estimated GFR > 60 Random Glucose 89 (60-115) mg/dL Calcium 8.8 D (8.4-10.2) mg/dL Total Bilirubin 1.6 H (0.0-1.0) mg/dL Direct Bilirubin 0.6 H (0.0-0.5) mg/dL AST 14 (5-31) U/L ALT 13 (0-31) U/L Alkaline Phosphatase 61 D (39-117) U/L Troponin I High Sens < 3.5 (<3.5-17.0) ng/L Total Protein 7.4 (6.5-8.0) g/dL Albumin 4.2 (3.5-5.0) g/dL Lipase 21 (8-78) U/L Beta HCG, Quant < 2 mIU/mL Imaging Data Chest x-ray: Attestation: I personally reviewed and interpreted this imaging study as follows: Radiologist's impression: CXR wet read By Dr. Beaver negative for any acute processes due to PACS system is down at this time. Abdominal ultrasound: Attestation: I personally reviewed and interpreted this imaging study as follows: Radiologist's impression: abdominal ultrasound negative read by Dr. Beaver ECG Data ECG #1: Attestation: I personally reviewed and interpreted this ECG as follows: ECG interpretation date: 10/09/21 ECG interpretation time: 10:40 Interpretation: Normal sinus rhythm with sinus arrhythmia with ventricular rate of 72 with normal [place] interval normal QRS duration normal QT/ QTC interval. No acute ischemic change are noted. Similar compared to prior EKG 06/05/2021. Discharge Plan Discharge Clinical Impression: Anxiety, GERD (gastroesophageal reflux disease) Patient Disposition: Home, Self-Care Instructions: Gastroesophageal Reflux Disease (ED), Anxiety (ED) Prescriptions: New hydroxyzine HCl 50 mg tablet 50 mg PO BID PRN (Reason: anxiety) Qty: 14 0RF famotidine [Pepcid] 20 mg tablet 20 mg PO BID Qty: 60 0RF No Action naproxen 500 mg tablet 500 mg PO BID PRN (Reason: pain) 10 Days Qty: 20 0RF albuterol sulfate 90 mcg/actuation aerosol powdr breath activated 2 inh inhalation Q4H PRN (Reason: shortness of breath or wheezing) Qty: 1 0RF azithromycin 250 mg tablet See Rx Instructions .ROUTE .COMPLEX Qty: 6 0RF Rx Instructions: For 250 mg dose pack: take 500 mg today (day 1), then 250 mg for 4 days (days 2-5) prednisone 20 mg tablet 40 mg PO DAILY Qty: 10 0RF benzonatate 200 mg capsule 200 mg PO TID PRN (Reason: cough) Qty: 20 0RF Referrals: Sandra Weber MD [Primary Care Provider] - 2 days Stand Alone Forms: Work/School Release
== END 2021-10-09 14:17 | disposition home or self-care (01) ==
PROVIDERS: Physician Assistant Medical; Emergency Provider Emergency Medicine; PCP Internal Medicine
DX: F41.9 Anxiety disorder, unspecified (principal); K21.9 Gastro-esophageal reflux disease without esophagitis; R06.02 Shortness of breath
CPT/HCPCS: 36415; 71046; 76700; 80048; 80076; 83690; 84484; 84702; 85025; 93005; 99283; 99284

== ENCOUNTER 2022-12-17 09:42 | Emergency (ER) | payer MEDICAID, SELFPAY ==
[2022-12-17 09:52] VITALS: BP 125/62; PULSE 69; RESP 19; TEMP 36.6; O2SAT 100; BMI 21.6
--- NOTE | 2022-12-17 10:38 | ED.GENADULT ---
HPI - General Adult General Chief complaint: Dental/Oral Stated complaint: Dental Pain ? Infection Time Seen by Provider: 12/17/22 10:13 Source: patient Mode of arrival: ambulatory Limitations: no limitations History of Present Illness HPI narrative: Patient is a 22-year-old female presenting to the emergency department with left lower and right upper and lower jaw pain. Patient reports known dental infection to left lower jaw and is currently on clindamycin prescribed by her dentist. States she is seeing her dentist tomorrow for repair of that tooth. Also complains of right upper and lower jaw pain which she states is beginning to radiate to right ear and right lateral neck. Denies fevers. Has been using Tylenol and ibuprofen with little relief. States has chronic dental pain but that pain has been worse for the past week or so. MD complaint: dental pain Onset (ago): week(s) Location: mouth Radiation: neck and other (right ear) Severity: severe Severity scale (1-10): 10 Quality: aching Pain Consistency: constant Relieving factors: none Exacerbating factors: eating Associated symptoms: denies other symptoms Treatments prior to arrival: NSAID and other (Tylenol) Related Data Previous Rx's Medication Instructions Recorded naproxen 500 mg tablet 500 mg PO BID PRN pain 10 days #20 05/22/21 tabs albuterol sulfate 90 mcg/actuation 2 inh inhalation Q4H PRN shortness 06/05/21 breath activated powder inhaler of breath or wheezing #1 ea azithromycin 250 mg tablet See Rx Instructions PO .COMPLEX #6 06/05/21 tabs benzonatate 200 mg capsule 200 mg PO TID PRN cough #20 caps 06/05/21 prednisone 20 mg tablet 40 mg PO DAILY #10 tabs 06/05/21 famotidine 20 mg tablet (Pepcid) 20 mg PO BID GERD #60 tabs 10/09/21 hydroxyzine HCl 50 mg tablet 50 mg PO BID PRN anxiety #14 tabs 10/09/21 oxycodone 5 mg capsule 5 mg PO Q8H PRN pain #4 caps 12/17/22 Allergies Allergy/AdvReac Type Severity Reaction Status Date / Time shrimp [SHRIMP] Allergy Unknown HIVES Verified 12/17/22 09:52 naproxen Allergy Rash Verified 12/17/22 09:52 Review of Systems Review of Systems: As per HPI. Yes all other systems are reviewed and are negative Constitutional: Constitutional: Reports as per HPI [facility] Past Medical History Medical History No known health problems Social History Social History Advance Directives: No Advance Directives Information Provided: Yes Current occupational status: employed Current occupation: [employer] Physical Exam ED Vital Signs: Vital Signs - 24 hr 12/17/22 09:52 Temperature 98 F Pulse Rate 69 Respiratory Rate 19 Blood Pressure 125/62 Pulse Oximetry 100 Oxygen Delivery Method Room Air BMI result Body Mass Index 21.6 Vital signs have been reviewed and appear to be correct. Blood pressure normal. Heart rate normal. Respiratory rate normal. Temperature normal. Oxygen saturation normal. Const General: cooperative, healthy appearing and no acute distress Orientation/consciousness: oriented to person, oriented to place, oriented to time and patient oriented x3 Limitations: no limitations HENMT Other: no trismus Head: Yes normocephalic and Yes atraumatic Ears: external ears normal, TM's normal bilaterally, EAC's normal, mastoids normal and no periauricular adenopathy General nose exam: Normal external nose present Face and sinus: Yes face symmetric Mouth: Normal oral and palatal mucosa present, oropharynx normal and moist mucous membranes Teeth and gingiva: gingiva normal and poor dentition Teeth image: 1. broken tooth, no edema, erythema or fluctuance Throat: Yes posterior oropharynx normal, Yes uvula midline and No uvular edema Eyes Pupils: Equal, round and reactive pupils present Neck Neck: Yes normal visual inspection, Yes no lymphadenopathy and Yes supple Resp Effort & Inspection: normal respiratory effort and able to speak in complete sentences Auscultation: clear to auscultation bilaterally Cardio Rate: regular rate Rhythm: regular rhythm Heart sounds: S1 normal heart sound present and S2 normal heart sound present GI Palpation (GI): Soft to palpation and nontender Auscultation: normoactive bowel sounds General: Yes no CVA tenderness Back/Spine/Pelvis Back: no CVA tenderness Skin General skin exam: elasticity normal and turgor normal Neuro General: oriented to person, oriented to place, oriented to time, patient oriented x3, moves all extremities, no focal motor deficits and CN's II-XI intact bilaterally Cranial nerves: Yes Equal, round and reactive pupils present Cognition (Neuro): normal cognition Extrem General: Yes full ROM, Yes no pedal edema and Yes no calf tenderness Psych Mental Status: mental status grossly normal Affect: normal affect Thought process: Normal thought process present Medical Decision Making Medical Decision Making [facility] Narrative: Patient is a 22-year-old female presenting to the emergency department with left lower and right upper and lower jaw pain. On exam patient is awake, A+Ox3, VS WNL, afebrile, normal neurological exam without focal deficits, Tooth #18 noted to be broken, no surrounding erythema, fluctuance, gingival edema or drainage, no erythema or edema to gingiva on right upper or lower jaw. Given reported symptoms and physical exam findings, initial differential includes dental infection/abscess. Do not suspect osteomyelitis. Patient is currently on clindamycin, do not feel change in antibiotics is indicated. Review of [employer] reveals no recent opiate prescriptions. Will prescribe a few oxycodone for pain control until patient is able to see dentist tomorrow. Patient verbalized understanding of and agreement with plan. Differential Diagnosis Differential Diagnoses: The differential diagnosis associated with the presentation includes As per MDM. External Record Review External record reviewed: Inpatient record, Office record and Outpatient record Prescription Management I considered prescription management with: Pain Medication Discharge Plan Discharge Clinical Impression: Pain, dental Patient Disposition: Home, Self-Care Instructions: Toothache (ED) Additional Instructions: You were evaluated in the emergency department today for dental pain. You are being prescribed a short course of pain medicine. You should continue to alternate Tylenol and ibuprofen every 3 hours as well. It is important to keep the appointment with her dentist tomorrow. Return to the emergency department if you develop difficulty opening and closing your jaw, worsening pain, fever 100.4? F or greater, throat swelling, or any other concerning symptoms. Prescriptions: New oxycodone 5 mg capsule 5 mg PO Q8H PRN (Reason: pain) Qty: 4 0RF Rx Instructions: Partial Fill upon patient request. No Action naproxen 500 mg tablet 500 mg PO BID PRN (Reason: pain) 10 Days Qty: 20 0RF albuterol sulfate 90 mcg/actuation aerosol powdr breath activated 2 inh inhalation Q4H PRN (Reason: shortness of breath or wheezing) Qty: 1 0RF azithromycin 250 mg tablet See Rx Instructions .ROUTE .COMPLEX Qty: 6 0RF Rx Instructions: For 250 mg dose pack: take 500 mg today (day 1), then 250 mg for 4 days (days 2-5) prednisone 20 mg tablet 40 mg PO DAILY Qty: 10 0RF benzonatate 200 mg capsule 200 mg PO TID PRN (Reason: cough) Qty: 20 0RF hydroxyzine HCl 50 mg tablet 50 mg PO BID PRN (Reason: anxiety) Qty: 14 0RF famotidine [Pepcid] 20 mg tablet 20 mg PO BID Qty: 60 0RF
== END 2022-12-17 11:01 | disposition home or self-care (01) ==
PROVIDERS: Emergency Provider Emergency Medicine; PCP Internal Medicine
DX: K08.89 Other specified disorders of teeth and supporting structures (principal)
CPT/HCPCS: 99282; 99283

== ENCOUNTER 2022-12-19 11:08 | Emergency (ER) | payer MEDICAID, SELFPAY ==
[2022-12-19 11:47] VITALS: BP 124/88; PULSE 76; RESP 19; TEMP 36.6; O2SAT 100; BMI 21.5
--- NOTE | 2022-12-19 11:47 | ED.GENADULT ---
HPI - General Adult General Chief complaint: Dental/Oral Stated complaint: dental pain Time Seen by Provider: 12/19/22 11:50 Source: patient, RN notes reviewed and old records reviewed Mode of arrival: ambulatory Limitations: no limitations History of Present Illness HPI narrative: 22-year-old female presents for evaluation of dental pain. Patient was recently seen here for similar. The patient followed up with her dentist yesterday. She now has had left lower dental/facial pain for approximately 1 week. Her dentist pulled ?part of the tooth but not the entire route. ? Her antibiotic was changed yesterday and she is due to be on antibiotics until next week. She presents for continued pain. Denies any facial swelling No fevers or chills Related Data Previous Rx's Medication Instructions Recorded naproxen 500 mg tablet 500 mg PO BID PRN pain 10 days #20 05/22/21 tabs albuterol sulfate 90 mcg/actuation 2 inh inhalation Q4H PRN shortness 06/05/21 breath activated powder inhaler of breath or wheezing #1 ea azithromycin 250 mg tablet See Rx Instructions PO .COMPLEX #6 06/05/21 tabs benzonatate 200 mg capsule 200 mg PO TID PRN cough #20 caps 06/05/21 prednisone 20 mg tablet 40 mg PO DAILY #10 tabs 06/05/21 famotidine 20 mg tablet (Pepcid) 20 mg PO BID GERD #60 tabs 10/09/21 hydroxyzine HCl 50 mg tablet 50 mg PO BID PRN anxiety #14 tabs 10/09/21 oxycodone 5 mg capsule 5 mg PO Q8H PRN pain #4 caps 12/17/22 oxycodone 5 mg tablet 5 mg PO Q6H PRN severe pain (scale 12/19/22 score 7-10) #14 tabs Allergies Allergy/AdvReac Type Severity Reaction Status Date / Time shrimp [SHRIMP] Allergy Unknown HIVES Verified 12/17/22 09:52 naproxen Allergy Rash Verified 12/17/22 09:52 Review of Systems Constitutional: Constitutional: Denies chills and Denies fever(s) ENT: Reports facial pain, Denies neck mass, Denies neck pain and Denies sore throat Cardiovascular: Cardiovascular: Denies chest pain and Denies dyspnea Respiratory: Respiratory: Denies dyspnea Gastrointestinal: Gastrointestinal: Denies abdominal pain, Denies nausea and Denies vomiting Musculoskeletal: Musculoskeletal: Denies neck pain PMFSH Past Medical History Medical History No known health problems Social History Social History Current occupational status: employed Current occupation: [employer] Physical Exam ED Vital Signs: Vital Signs - 24 hr 12/19/22 11:47 Temperature 98 F Pulse Rate 76 Respiratory Rate 19 Blood Pressure 124/88 Pulse Oximetry 100 Oxygen Delivery Method Room Air BMI result Body Mass Index 21.5 Const General: healthy appearing, comfortable, no acute distress, alert and awake Nutritional Appearance: well nourished Orientation/consciousness: patient oriented x3 HENMT Other: Left lower molar erythema. No active bleeding. No evidence of abscess. Head: Yes normocephalic and Yes atraumatic Neck Neck: Yes full ROM Resp Effort & Inspection: normal respiratory effort, able to speak in complete sentences and not labored Cardio Rate: regular rate Rhythm: regular rhythm Skin General skin exam: no rashes or lesions noted and elasticity normal Neuro General: patient oriented x3 Cranial nerves: Yes Bilaterally intact EOM present Cognition (Neuro): normal cognition Extrem Other: Moving all extremities well without any obvious deformities Medical Decision Making Medical Decision Making MDM Narrative: Patient has outpatient follow-up with dentist, she is currently on antibiotics. No evidence of abscess requiring drainage or anterior neck swelling. Will treat the patient with oxycodone symptomatic clean she will follow up as an outpatient with her dentist Differential Diagnosis Differential Diagnoses: The differential diagnosis associated with the presentation includes Facial pain Dental pain Dental abscess Dental caries Gingivitis Discharge Plan Discharge Clinical Impression: Pain, dental, Acute facial pain Patient Disposition: Home, Self-Care Instructions: Toothache (ED) Additional Instructions: He may continue your antibiotics as prescribed. You may use [id number] topical anesthetic such as Orajel or Magic mouthwash You may continue using ibuprofen/Tylenol Use oxycodone for more severe, breakthrough pain This may make you sleepy, do not drink alcohol or drive after taking Follow-up with your dentist Prescriptions: New oxycodone 5 mg tablet 5 mg PO Q6H PRN (Reason: severe pain (scale score 7-10)) Qty: 14 0RF Rx Instructions: Partial Fill upon patient request. No Action naproxen 500 mg tablet 500 mg PO BID PRN (Reason: pain) 10 Days Qty: 20 0RF albuterol sulfate 90 mcg/actuation aerosol powdr breath activated 2 inh inhalation Q4H PRN (Reason: shortness of breath or wheezing) Qty: 1 0RF azithromycin 250 mg tablet See Rx Instructions .ROUTE .COMPLEX Qty: 6 0RF Rx Instructions: For 250 mg dose pack: take 500 mg today (day 1), then 250 mg for 4 days (days 2-5) prednisone 20 mg tablet 40 mg PO DAILY Qty: 10 0RF benzonatate 200 mg capsule 200 mg PO TID PRN (Reason: cough) Qty: 20 0RF hydroxyzine HCl 50 mg tablet 50 mg PO BID PRN (Reason: anxiety) Qty: 14 0RF famotidine [Pepcid] 20 mg tablet 20 mg PO BID Qty: 60 0RF oxycodone 5 mg capsule 5 mg PO Q8H PRN (Reason: pain) Qty: 4 0RF Rx Instructions: Partial Fill upon patient request.
== END 2022-12-19 12:04 | disposition home or self-care (01) ==
PROVIDERS: Emergency Provider Emergency Medicine; PCP Internal Medicine
DX: K08.89 Other specified disorders of teeth and supporting structures (principal); G50.1 Atypical facial pain; Z79.899 Other long term (current) drug therapy
CPT/HCPCS: 99282; 99283